=== PATIENT | female | born 1995 | race Caucasian/White ===

== ENCOUNTER 2016-07-07 11:36 | Emergency (ER) | payer OTHER ==
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
== END 2016-07-07 12:40 | disposition home or self-care (01) ==
LOC: NAV ERS 11:36
DX: S16.1XXA Strain of muscle, fascia and tendon at neck level, initial encounter (principal); S30.0XXA Contusion of lower back and pelvis, initial encounter; V53.6XXA Passenger in pick-up truck or van injured in collision with car, pick-up truck or van in traffic accident, initial encounter
CPT/HCPCS: 99283

== ENCOUNTER 2018-11-03 16:37 | Emergency (ER) | payer BC | END 2018-11-03 16:58 | disposition home or self-care (01) | LOC: NAV ERS 16:37 | DX: H69.91 Unspecified Eustachian tube disorder, right ear (principal) | CPT/HCPCS: 99282 ==

== ENCOUNTER 2022-07-28 20:32 | Emergency (ER) | payer SELFPAY | END 2022-07-28 21:22 | disposition home or self-care (01) | LOC: NAV ERS 20:32 | DX: R68.84 Jaw pain (principal) | CPT/HCPCS: 99283 ==

== ENCOUNTER 2024-02-11 20:41 | Emergency (ER) | payer SELFPAY | END 2024-02-11 21:20 | disposition home or self-care (01) | LOC: NAV ERS 20:41 | DX: J01.90 Acute sinusitis, unspecified (principal); H66.91 Otitis media, unspecified, right ear | CPT/HCPCS: 99283 ==

== ENCOUNTER 2024-03-22 16:23 | Emergency (ER) | payer OTHER, SELFPAY | END 2024-03-22 16:48 | disposition home or self-care (01) | LOC: NAV ERS 16:23 | DX: S00.03XA Contusion of scalp, initial encounter (principal); V48.6XXA Car passenger injured in noncollision transport accident in traffic accident, initial encounter | CPT/HCPCS: 99284 ==